=== PATIENT | female | born 1965 | race Caucasian/White ===

== ENCOUNTER 2016-04-05 21:48 | Emergency (ER) ==
[2016-04-05 22:28] VITALS: BP 138/80
[2016-04-06] MEDS ORDERED: NUBAIN IM ONE (00:26)
[2016-04-06] MEDS ORDERED: PHENERGAN IM ONE (00:26)
[2016-04-06] MEDS ORDERED: HYDROXYZINE IM ONE (00:26)
--- NOTE | 2016-04-06 00:31 | PROVIDER DOCUMENTATION ---
Addendum entered and electronically signed by Ronel Broussard CRNP 02:11: Progress - PLAN OF CARE/RESULTS Progress/Plan/Lab Results: Orders Category Date Time Status Hydroxyzine Med 04/06/16 00:26 Discontinued 50 mg IM NOW ONE Nalbuphine [Nubain] Med 04/06/16 00:26 Discontinued 1 mg IM NOW ONE Promethazine [Phenergan] Med 04/06/16 00:26 Discontinued 25 mg IM NOW ONE Vital Signs - 24 hr 04/05/16 22:25 Temperature 97.4 F L Pulse Rate 74 Respiratory 18 Rate Blood Pressure 138/80 O2 Sat by Pulse 100 Oximetry Original Note: HPI-Headache - General Source: patient - History of Present Illness-Headache Headache Location: reports: frontal Quality of Pain: reports: aching Severity: reports: mild Onset/Duration: reports: 1-3 hours ago Timing: reports: still present Headache History: reports: frequent headaches, history of migraines Any recent trauma/injury?: reports: none Headache severity at the maximum: mild Headache Exacerbated by:: reports: nothing Associated Symptoms: reports: headache, nausea, other (rash) Similar Symptoms Previously?: Yes Recently seen or treated by another doctor?: Yes <Eden Prince - Last Filed: 04/06/16 00:27> <Ronel Broussard - Last Filed: 04/06/16 00:46> - General Chief Complaint: Headache Stated Complaint: RASH, JOHNSON Time Seen by Provider: 04/05/16 23:47 Allergies/Adverse Reactions: Patient Allergies Allergy/AdvReac Type Severity Reaction Status Date / Time ketorolac tromethamine * Allergy Mild ITCHING Verified 04/02/16 01:22 [From Toradol] AND SWELLING Sulfa (Sulfonamide Allergy Mild RASH Verified 04/02/16 01:22 Antibiotics) trazodone AdvReac Severe HALLUCINATI Verified 04/02/16 01:22 ONS topiramate [From Topamax] AdvReac Intermediate "MADE ME Verified 04/02/16 01:22 GO BLIND" clindamycin AdvReac Unknown CANT TAKE Verified 04/02/16 01:22 WITH SEIZURE MEDS dicyclomine HCl * AdvReac Unknown CANT TAKE Verified 04/02/16 01:22 [From Bentyl] WITH SEIZURE MEDS Home Medications: Venlafaxine E.r. [Effexor Xr] 37.5 mg PO DAILY 02/18/15 Divalproex [Depakote] 500 mg PO TID 05/24/15 Clonazepam [Klonopin] 0.5 mg PO TID 10/26/15 Hydrochlorothiazide 12.5 mg PO QAM 11/01/15 Atorvastatin Calcium [Lipitor] 10 mg PO QHS 12/22/15 Sumatriptan [Imitrex] 50 mg PO PRN PRN 12/22/15 - History of Present Illness-Headache Nature of Presenting Problem: 51 year old F presents to the ED with a cc of a headache. PT states that she was her for a rash to left side of her face but en-route to the hospital developed a migraine. (Eden Prince) Review of Systems - Adult - REVIEW OF SYSTEMS - ADULT Constitutional: denies: chills, fever Eyes: reports: no symptoms reported Ears, Nose, Mouth & Throat: reports: no symptoms reported Cardiovascular: denies: chest pain, palpitations Respiratory: denies: cough, shortness of breath Gastrointestinal: reports: nausea. denies: abdominal pain, vomiting Genitourinary: denies: dysuria, hesitency Musculoskeletal: reports: no symptoms reported Integumentary: reports: itching, rash Neurological: reports: headache/migraines. denies: dizziness/vertigo Psychiatric: reports: no symptoms reported Endocrine: reports: no symptoms reported Hematologic/Lymphatic: reports: no symptoms reported Allergic/Immunologic: reports: no symptoms reported All Other Systems: Reviewed and Negative <Eden Prince - Last Filed: 04/06/16 00:27> Past History - Adult - PAST MEDICAL HISTORY-ADULT Review of Records: reports: Nursing Assessment Review, Medications Reviewed Major Childhood Illnesses: reports: denies history Cardiovascular: reports: HTN, hyperlipidemia Respiratory: reports: asthma Gastrointestinal: reports: IBS Neurological: reports: headaches/migraines, Seizures/Epilepsy Psychiatric: reports: anxiety Additional History: Frequent ER visits - PRIOR SURGERIES/PROCEDURES Surgical/Procedure History: reports: cholecystectomy, BTL, tonsillectomy, other (TUBAL) - IMMUNIZATION STATUS Childhood Immunizations: See Nurse Assessment Flu Vaccine: See Nurse Assessment - FAMILY HISTORY Family History: reviewed, not pertinent - SOCIAL HISTORY Smoking: non-smoker Substance Use: none/never Alcohol Use Frequency: never <Eden Prince - Last Filed: 04/06/16 00:27> Physical Exam- Neurological - Physical Exam-Neuro Initial Vital Signs Reviewed: Yes General Appearance: appears well, alert, no apparent distress Head Injury: no evidence of injury Respiratory: chest non-tender, lungs clear, normal breath sounds Cardiovascular: normal peripheral pulses, regular rate, rhythm, no edema Abdominal Exam: non tender, soft transmission operator Exam: normal hearing, normal speech, PERRL Neurologic: transmission operator II-XII nml as tested, no motor/sensory deficits Integumentary: normal color, normal turgor, warm/dry <Eden Prince - Last Filed: 04/06/16 00:27> Departure <Eden Prince - Last Filed: 04/06/16 00:27> - Departure Time of Disposition Order: 00:43 Certified Medical Emergency: Emergent <Ronel Broussard - Last Filed: 04/06/16 00:46> - Departure DIAGNOSIS: Urticaria Chronic headaches Qualifiers: Headache type: unspecified Intractability: not intractable Qualified Code(s): R51 - Headache Disposition: HOME 01 Condition: Stable Additional Instructions: ED Follow Up Instructions: You have been treated by a care provider in the Emergency Department. These instructions are being provided to you so you can have an understanding of how to care for yourself upon discharge. Upon discharge from the Emergency Department, you are responsible for making arrangements for follow-up care by a physician of your choice. Take all prescribed medications as directed. Return to the Emergency Department immediately for any new or worsening symptoms. You may call the Physician Referral phone number at [phone] to obtain a list of Physicians who are taking new patients. Prescriptions: Sumatriptan [Imitrex] 25 mg PO PRN PRN #9 tablet PRN Reason: Headache Hydroxyzine Pamoate [Vistaril] 25 mg PO BID PRN PRN #10 capsule PRN Reason: Itching Attestation - Scribe Verification/Attestation Scribe:: Eden Prince Acting as Scribe for:: Ronel Broussard Scribe documention review:: This chart was documented by a scribe and accurately reflects the service the provider performed and the decisions made by the provider. <Eden Prince - Last Filed: 04/06/16 00:27> - Physician/ Mid-level Attestation Patient care was provided by Mid-level provider (DEPUTY DIRECTOR OF NURSING/PA):: Yes Mid-level provider:: Ronel Broussard Mid-level documentation review:: The Mid-level provider documentation, treatment plan and medical decision making was reviewed by the physician who agrees with all treatment and medical decision making by the [facility]. <Roenl Broussard - Last Filed: 04/06/16 00:46> Physician Attestation - Physician Attestation I, the provider, attest to the following statement:: Ronel Broussard Physician documentation Attestation:: This documentation recorded by the scribe accurately reflects the service I personally performed and the decisions made by me. <Eden Prince - Last Filed: 04/06/16 00:27>
== END 2016-04-06 01:34 | disposition home or self-care (01) ==
LOC: ED 21:48
DX: L50.9 Urticaria, unspecified (principal); R51 Headache; R11.0 Nausea; R21 Rash and other nonspecific skin eruption; L29.9 Pruritus, unspecified; I10 Essential (primary) hypertension; E78.5 Hyperlipidemia, unspecified; R56.9 Unspecified convulsions; F41.9 Anxiety disorder, unspecified; Z79.899 Other long term (current) drug therapy
CPT/HCPCS: 96372; J2300; J2550; J3410

== ENCOUNTER 2016-04-06 18:44 | Emergency (ER) ==
[2016-04-06] MEDS ORDERED: NUBAIN IM ONE (19:29)
[2016-04-06] MEDS ORDERED: PHENERGAN IM ONE (19:29)
[2016-04-06] MEDS ORDERED: BENADRYL IM ONE (19:29)
--- NOTE | 2016-04-06 19:33 | PROVIDER DOCUMENTATION ---
HPI-Headache - General Chief Complaint: Seizure Stated Complaint: JOHNSON Time Seen by Provider: 04/06/16 19:01 Source: patient Allergies/Adverse Reactions: Patient Allergies Allergy/AdvReac Type Severity Reaction Status Date / Time ketorolac tromethamine * Allergy Mild ITCHING Verified 04/06/16 19:15 [From Toradol] AND SWELLING Sulfa (Sulfonamide Allergy Mild RASH Verified 04/06/16 19:15 Antibiotics) trazodone AdvReac Severe HALLUCINATI Verified 04/06/16 19:15 ONS topiramate [From Topamax] AdvReac Intermediate "MADE ME Verified 04/06/16 19:15 GO BLIND" clindamycin AdvReac Unknown CANT TAKE Verified 04/06/16 19:15 WITH SEIZURE MEDS dicyclomine HCl * AdvReac Unknown CANT TAKE Verified 04/06/16 19:15 [From Bentyl] WITH SEIZURE MEDS Home Medications: Venlafaxine E.r. [Effexor Xr] 37.5 mg PO DAILY 02/18/15 Divalproex [Depakote] 500 mg PO TID 05/24/15 Clonazepam [Klonopin] 0.5 mg PO TID 10/26/15 Hydrochlorothiazide 12.5 mg PO QAM 11/01/15 Atorvastatin Calcium [Lipitor] 10 mg PO QHS 12/22/15 Sumatriptan [Imitrex] 50 mg PO PRN PRN 12/22/15 - History of Present Illness-Headache Nature of Presenting Problem: 51 y/o f presents to the ed with her typical headache symptoms. pt has a ongoing hx of migraines. pt states she started having a headache last night and then again this morning. pt denies any fever/chills. Headache Location: reports: global Quality of Pain: reports: aching Severity: reports: moderate Onset/Duration: reports: last night Timing: reports: still present Headache History: reports: chronic headaches Any recent trauma/injury?: reports: none Headache severity at the maximum: moderate Similar Symptoms Previously?: Yes Recently seen or treated by another doctor?: No Review of Systems - Adult - REVIEW OF SYSTEMS - ADULT Constitutional: denies: chills, fever Gastrointestinal: denies: abdominal pain, nausea Neurological: reports: headache/migraines. denies: dizziness/vertigo Past History - Adult - PAST MEDICAL HISTORY-ADULT Review of Records: reports: Old Records Reviewed, Nursing Assessment Review, Medications Reviewed Major Childhood Illnesses: reports: denies history Cardiovascular: reports: HTN, hyperlipidemia Respiratory: reports: asthma Gastrointestinal: reports: IBS Neurological: reports: headaches/migraines, Seizures/Epilepsy Psychiatric: reports: anxiety Additional History: Frequent ER visits - PRIOR SURGERIES/PROCEDURES Surgical/Procedure History: reports: cholecystectomy, BTL, tonsillectomy, other (TUBAL) - IMMUNIZATION STATUS Childhood Immunizations: See Nurse Assessment Flu Vaccine: See Nurse Assessment - FAMILY HISTORY Family History: reviewed, not pertinent - SOCIAL HISTORY Smoking: non-smoker Substance Use: none/never Alcohol Use Frequency: never Physical Exam- Neurological - Physical Exam-Neuro Initial Vital Signs Reviewed: Yes General Appearance: alert, no apparent distress Eye Exam: bilateral eye: normal inspection, PERRL, EOMI HENMT: moist mucous membranes, normal ENT inspection, TMs normal Head Injury: no evidence of injury Neck: non-tender, full range of motion, supple Respiratory: chest non-tender, lungs clear, normal breath sounds Cardiovascular: normal peripheral pulses, regular rate, rhythm Abdominal Exam: normal bowel sounds, non tender, soft automatic mounter Exam: normal hearing, normal speech, PERRL Integumentary: normal color, normal turgor, warm/dry Psych/Mental Status: AL, normal mood/affect, normal thought content, normal thought process, oriented x 3 Progress - PLAN OF CARE/RESULTS Progress/Plan/Lab Results: plan of care: medication Orders Category Date Time Status Diphenhydramine [Benadryl] Med 04/06/16 19:29 Discontinued 25 mg IM NOW ONE Nalbuphine [Nubain] Med 04/06/16 19:29 Discontinued 1 mg IM NOW ONE Promethazine [Phenergan] Med 04/06/16 19:29 Discontinued 25 mg IM NOW ONE Vital Signs - 24 hr 04/06/16 18:53 Temperature 98.4 F Pulse Rate 102 H Respiratory 20 Rate Blood Pressure 104/43 O2 Sat by Pulse 95 Oximetry Departure - Departure Time of Disposition Order: 19:32 DIAGNOSIS: Migraine Qualifiers: Migraine type: unspecified Status migrainosus presence: without status migrainosus Intractability: not intractable Qualified Code(s): G43.909 - Migraine, unspecified, not intractable, without status migrainosus Disposition: HOME 01 Certified Medical Emergency: Emergent Condition: Stable Additional Instructions: ED Follow Up Instructions: You have been treated by a care provider in the Emergency Department. These instructions are being provided to you so you can have an understanding of how to care for yourself upon discharge. Upon discharge from the Emergency Department, you are responsible for making arrangements for follow-up care by a physician of your choice. Take all prescribed medications as directed. Return to the Emergency Department immediately for any new or worsening symptoms. You may call the Physician Referral phone number at [phone] to obtain a list of Physicians who are taking new patients. Attestation - Scribe Verification/Attestation Scribe:: Karyn Cohen Acting as Scribe for:: Lukasz Garrett Scribe documention review:: This chart was documented by a scribe and accurately reflects the service the provider performed and the decisions made by the provider.
[2016-04-06 19:45] VITALS: BP 101/48
== END 2016-04-06 21:03 | disposition home or self-care (01) ==
LOC: ED 18:44
DX: G43.909 Migraine, unspecified, not intractable, without status migrainosus (principal); R51 Headache; I10 Essential (primary) hypertension; E78.5 Hyperlipidemia, unspecified; R56.9 Unspecified convulsions; F41.9 Anxiety disorder, unspecified; Z79.899 Other long term (current) drug therapy
CPT/HCPCS: 96372; J1200; J2300; J2550

== ENCOUNTER 2016-04-11 00:07 | Emergency (ER) ==
--- NOTE | 2016-04-11 01:04 | PROVIDER DOCUMENTATION ---
HPI-General Adult - General Source: patient - History of Present Illness -Gen Adult Nature of Presenting Problems: 51 y/o f presents to the ed with right ankle pain X 2 days. pt states she fell through a floor yesterday and her right ankle is hurting bc she braced herself with the right foot. pt denies any other injuries. Location of Pain/Injury: reports: lower extremity (right medial ankle) Pain Radiation: reports: no radiation Quality of Pain: reports: aching Severity: reports: mild Onset/Duration: reports: 24 hours ago Timing: reports: still present Modifying Factors: improves with: movement Similar Symptoms Previously?: No Recently seen or treated by another doctor?: No <Karyn Cohen - Last Filed: 04/11/16 01:19> - General Source: patient <Brisa CallahanRadha - Last Filed: 04/11/16 01:35> - General Chief Complaint: Extremity Pain Stated Complaint: RT FT PAIN Time Seen by Provider: 04/11/16 00:43 Allergies/Adverse Reactions: Patient Allergies Allergy/AdvReac Type Severity Reaction Status Date / Time ketorolac tromethamine * Allergy Mild ITCHING Verified 04/11/16 00:14 [From Toradol] AND SWELLING Sulfa (Sulfonamide Allergy Mild RASH Verified 04/11/16 00:14 Antibiotics) trazodone AdvReac Severe HALLUCINATI Verified 04/11/16 00:14 ONS topiramate [From Topamax] AdvReac Intermediate "MADE ME Verified 04/11/16 00:14 GO BLIND" clindamycin AdvReac Unknown CANT TAKE Verified 04/11/16 00:14 WITH SEIZURE MEDS dicyclomine HCl * AdvReac Unknown CANT TAKE Verified 04/11/16 00:14 [From Bentyl] WITH SEIZURE MEDS Home Medications: Venlafaxine E.r. [Effexor Xr] 37.5 mg PO DAILY 02/18/15 Divalproex [Depakote] 500 mg PO TID 05/24/15 Clonazepam [Klonopin] 0.5 mg PO TID 10/26/15 Hydrochlorothiazide 12.5 mg PO QAM 11/01/15 Atorvastatin Calcium [Lipitor] 10 mg PO QHS 12/22/15 Sumatriptan [Imitrex] 50 mg PO PRN PRN 12/22/15 Review of Systems - Adult - REVIEW OF SYSTEMS - ADULT Constitutional: denies: chills, fever Cardiovascular: denies: chest pain, palpitations Neurological: denies: dizziness/vertigo, headache/migraines <Karyn Cohen - Last Filed: 04/11/16 01:19> Past History - Adult - PAST MEDICAL HISTORY-ADULT Review of Records: reports: Old Records Reviewed, Nursing Assessment Review, Medications Reviewed Major Childhood Illnesses: reports: denies history Cardiovascular: reports: HTN, hyperlipidemia Respiratory: reports: asthma Gastrointestinal: reports: IBS Neurological: reports: headaches/migraines, Seizures/Epilepsy Psychiatric: reports: anxiety Additional History: Frequent ER visits - PRIOR SURGERIES/PROCEDURES Surgical/Procedure History: reports: cholecystectomy, BTL, tonsillectomy, other (TUBAL) - IMMUNIZATION STATUS Childhood Immunizations: See Nurse Assessment Flu Vaccine: See Nurse Assessment - FAMILY HISTORY Family History: reviewed, not pertinent - SOCIAL HISTORY Smoking: non-smoker <Karyn Cohen - Last Filed: 04/11/16 01:19> Physical Exam-General - PHYSICAL EXAM-ADULT Initial Vital Signs Reviewed: Yes - CONSTITUTIONAL General Appearance: alert, no apparent distress - EYES Eyes: PERRL/EOMI, pink conjunctivae, fundi clear, no AV nicking - HEAD, EARS, NOSE, MOUTH & THROAT HENMT: normocephalic/atraumatic, moist mucous membranes, normal ENT inspection - NECK Neck: non-tender, full range of motion, supple - RESPIRATORY Respiratory: chest non-tender, lungs clear, normal breath sounds - CARDIOVASCULAR Cardiovascular: normal peripheral pulses, regular rate, rhythm - GASTROINTESTINAL (ABDOMEN) Abdominal Exam: normal bowel sounds, non tender, soft - MUSCULOSKELETAL Back Exam: normal inspection Extremity: tenderness (right ankle) - SKIN Integumentary: normal color, normal turgor, warm/dry - PSYCHIATRIC Psych/Mental Status: normal mood/affect, normal thought content, normal thought process, oriented x 3 <Karyn Cohen - Last Filed: 04/11/16 01:19> Progress - XRAY 1 XRAY: Right XRAY Study: Ankle Impression: Normal XRAY Interpretation: normal <Karyn Cohen - Last Filed: 04/11/16 01:19> - PLAN OF CARE/RESULTS Progress/Plan/Lab Results: Orders Category Date Time Status ANKLE COMPLETE RIGHT [RAD] Stat Exams 04/11/16 00:46 Taken Acetaminophen [Tylenol] Med 04/11/16 01:27 Discontinued 650 mg PO NOW ONE Vital Signs Temp Pulse Resp BP Pulse Ox 04/11/16 00:09 98.1 F 90 17 123/63 100 ketorolac tromethamine * [From Toradol] Allergy (Mild, Verified 04/11/16 00:14) ITCHING AND SWELLING Sulfa (Sulfonamide Antibiotics) Allergy (Mild, Verified 04/11/16 00:14) RASH trazodone Adverse Reaction (Severe, Verified 04/11/16 00:14) HALLUCINATIONS topiramate [From Topamax] Adverse Reaction (Intermediate, Verified 04/11/16 00: 14) "MADE ME GO BLIND" clindamycin Adverse Reaction (Unknown, Verified 04/11/16 00:14) CANT TAKE WITH SEIZURE MEDS dicyclomine HCl * [From Bentyl] Adverse Reaction (Unknown, Verified 04/11/16 00: 14) CANT TAKE WITH SEIZURE MEDS Venlafaxine E.r. [Effexor Xr] 37.5 mg PO DAILY 02/18/15 Divalproex [Depakote] 500 mg PO TID 05/24/15 Clonazepam [Klonopin] 0.5 mg PO TID 10/26/15 Hydrochlorothiazide 12.5 mg PO QAM 11/01/15 Atorvastatin Calcium [Lipitor] 10 mg PO QHS 12/22/15 Sumatriptan [Imitrex] 50 mg PO PRN PRN 12/22/15 Promethazine [Phenergan] 25 mg PO Q6H PRN PRN #15 tablet 02/18/16 Benzonatate [Tessalon] 100 mg PO TID #30 capsule 03/10/16 Amoxicillin 500 mg PO BID #14 tablet 03/24/16 Hydroxyzine Pamoate [Vistaril] 25 mg PO BID PRN PRN #10 capsule 04/06/16 Sumatriptan [Imitrex] 25 mg PO PRN PRN #9 tablet 04/06/16 Acetaminophen/Diphenhydramine [Percogesic Extra Str Caplet] 1 each PO 4XDAY PRN PRN #30 tablet 04/11/16 Discussed results and f/u with pt. <Brisa Callahan - Last Filed: 04/11/16 01:35> Departure <Karyn Cohen - Last Filed: 04/11/16 01:19> - Departure Time of Disposition Order: 01:21 Certified Medical Emergency: Emergent <Brisa Callahan - Last Filed: 04/11/16 01:35> - Departure DIAGNOSIS: Ankle pain, right Qualifiers: Chronicity: acute Qualified Code(s): M25.571 - Pain in right ankle and joints of right foot Disposition: HOME 01 Condition: Stable Additional Instructions: RICE as needed. Follow up with specialist if symptoms get worse. ED Follow Up Instructions: You have been treated by a care provider in the Emergency Department. These instructions are being provided to you so you can have an understanding of how to care for yourself upon discharge. Upon discharge from the Emergency Department, you are responsible for making arrangements for follow-up care by a physician of your choice. Take all prescribed medications as directed. Return to the Emergency Department immediately for any new or worsening symptoms. You may call the Physician Referral phone number at [phone] to obtain a list of Physicians who are taking new patients. Prescriptions: Acetaminophen/Diphenhydramine [Percogesic Extra Str Caplet] 1 each PO 4XDAY PRN PRN #30 tablet PRN Reason: Pain Referrals: None,PCP [Primary Care Provider] - Berhane Pepe MD [STAFF PHYSICIAN] - Instructions: Ankle Pain Attestation - Physician/ Mid-level Attestation Patient care was provided by Mid-level provider (A/C TECHNICIAN/PA):: Yes Mid-level provider:: Brisa Callahan Mid-level documentation review:: The Mid-level provider documentation, treatment plan and medical decision making was reviewed by the physician who agrees with all treatment and medical decision making by the [facility]. <Brisa Callahan - Last Filed: 04/11/16 01:35> Physician Attestation
[2016-04-11] MEDS ORDERED: TYLENOL PO ONE (01:27)
[2016-04-11 01:51] VITALS: BP 120/68
--- NOTE | 2016-04-11 07:15 | Diag Imaging Result Document ---
PROCEDURE NAME: ANKLE COMPLETE RIGHT - 04/11/2016 RIGHT ANKLE, THREE VIEWS: FINDINGS: No fracture. No dislocation. There are small calcaneal bone spurs. IMPRESSION: No acute bony injury.
== END 2016-04-11 01:51 | disposition home or self-care (01) ==
LOC: ED 00:07
DX: M25.571 Pain in right ankle and joints of right foot (principal); I10 Essential (primary) hypertension; E78.5 Hyperlipidemia, unspecified; R56.9 Unspecified convulsions; F41.9 Anxiety disorder, unspecified; Z79.899 Other long term (current) drug therapy; W19.XXXA Unspecified fall, initial encounter
CPT/HCPCS: 99283

== ENCOUNTER 2016-04-13 21:51 | Emergency (ER) ==
[2016-04-13 21:56] VITALS: BP 129/66
[2016-04-13] MEDS ORDERED: PHENERGAN IM ONE (22:16)
[2016-04-13] MEDS ORDERED: TYLENOL PO ONE (22:16)
--- NOTE | 2016-04-13 22:24 | PROVIDER DOCUMENTATION ---
HPI-Headache - General Chief Complaint: Headache Stated Complaint: JOHNSON Time Seen by Provider: 04/13/16 22:16 Source: patient Allergies/Adverse Reactions: Patient Allergies Allergy/AdvReac Type Severity Reaction Status Date / Time ketorolac tromethamine * Allergy Mild ITCHING Verified 04/13/16 21:58 [From Toradol] AND SWELLING Sulfa (Sulfonamide Allergy Mild RASH Verified 04/13/16 21:58 Antibiotics) trazodone AdvReac Severe HALLUCINATI Verified 04/13/16 21:58 ONS topiramate [From Topamax] AdvReac Intermediate "MADE ME Verified 04/13/16 21:58 GO BLIND" clindamycin AdvReac Unknown CANT TAKE Verified 04/13/16 21:58 WITH SEIZURE MEDS dicyclomine HCl * AdvReac Unknown CANT TAKE Verified 04/13/16 21:58 [From Bentyl] WITH SEIZURE MEDS Home Medications: Venlafaxine E.r. [Effexor Xr] 37.5 mg PO DAILY 02/18/15 Divalproex [Depakote] 500 mg PO TID 05/24/15 Clonazepam [Klonopin] 0.5 mg PO TID 10/26/15 Hydrochlorothiazide 12.5 mg PO QAM 11/01/15 Atorvastatin Calcium [Lipitor] 10 mg PO QHS 12/22/15 - History of Present Illness-Headache Nature of Presenting Problem: 51 y/o WF c/o JOHNSON x 4 days. Pt states she has taken phenergan, benadryl, and imitrex at home, without relief. States she has had vomiting with the JOHNSON. Pt states that she can't keep her pills down long enough for medication to work. Denies any other sxs. States some intermittent muscle aches in her back; not currently happening. Review of Systems - Adult - REVIEW OF SYSTEMS - ADULT Constitutional: reports: no symptoms reported. denies: chills, fever Eyes: reports: no symptoms reported. denies: blurred vision, double vision Ears, Nose, Mouth & Throat: reports: no symptoms reported. denies: ear pain, nose pain Cardiovascular: reports: no symptoms reported. denies: chest pain, palpitations Respiratory: reports: no symptoms reported. denies: dyspnea on exertion, shortness of breath Gastrointestinal: reports: see HPI, nausea, vomiting. denies: abdominal pain Genitourinary: reports: no symptoms reported. denies: dysuria, frequency Musculoskeletal: reports: no symptoms reported. denies: joint pain, joint swelling Integumentary: reports: no symptoms reported. denies: nail changes, rash Neurological: reports: see HPI, headache/migraines (frontal, superior scalp). denies: numbness, paresthesia Psychiatric: reports: no symptoms reported Endocrine: reports: no symptoms reported Hematologic/Lymphatic: reports: no symptoms reported Allergic/Immunologic: reports: no symptoms reported All Other Systems: Reviewed and Negative Past History - Adult - PAST MEDICAL HISTORY-ADULT Review of Records: reports: Nursing Assessment Review, Medications Reviewed Major Childhood Illnesses: reports: denies history Cardiovascular: reports: HTN, hyperlipidemia Respiratory: reports: asthma Gastrointestinal: reports: IBS Neurological: reports: headaches/migraines, Seizures/Epilepsy Psychiatric: reports: anxiety Additional History: Frequent ER visits - PRIOR SURGERIES/PROCEDURES Surgical/Procedure History: reports: cholecystectomy, BTL, tonsillectomy, other (TUBAL) - IMMUNIZATION STATUS Childhood Immunizations: See Nurse Assessment Flu Vaccine: See Nurse Assessment - FAMILY HISTORY Family History: reviewed, not pertinent Physical Exam- Neurological - Physical Exam-Neuro Initial Vital Signs Reviewed: Yes General Appearance: alert, mild distress Eye Exam: bilateral eye: normal inspection, PERRL, EOMI HENMT: normocephalic/atraumatic, moist mucous membranes Head Injury: no evidence of injury Neck: full range of motion, supple, normal inspection. negative: Brudzinski's sign Respiratory: lungs clear, normal breath sounds. negative: crackles, rales, rhonchi, stridor, wheezing Cardiovascular: regular rate, rhythm. negative: bradycardia, tachycardia Abdominal Exam: normal bowel sounds, non tender, soft. negative: distended, guarding, rigid, rebound Extremity: normal gait separations scientist Exam: normal hearing, normal speech, PERRL. negative: abnormal eye position , abnormal pupil position, abnormal speech, facial asymmetry, facial droop, facial paresthesias, facial weakness, gaze palsy, hearing deficit (R), hearing deficit (L), tongue deviation to R, tongue deviation to L Coordination/Gait: normal gait Motor/Sensory: no motor deficit, no sensory deficit. negative: sensory deficit , weak motor strength RUE, weak motor strength LUE, weak motor strength RLE, weak motor strength LLE Neurologic: separations scientist II-XII nml as tested. negative: aphasia Integumentary: normal color, normal turgor, warm/dry Psych/Mental Status: normal mood/affect, normal thought content, normal thought process, oriented x 3 Progress - PLAN OF CARE/RESULTS Progress/Plan/Lab Results: Orders Category Date Time Status Acetaminophen [Tylenol] Med 04/13/16 22:16 Discontinued 650 mg PO NOW ONE Promethazine [Phenergan] Med 04/13/16 22:16 Discontinued 25 mg IM NOW ONE Vital Signs Temp Pulse Resp BP Pulse Ox 04/13/16 21:53 98.5 F 114 H 14 129/66 100 ketorolac tromethamine * [From Toradol] Allergy (Mild, Verified 04/13/16 21:58) ITCHING AND SWELLING Sulfa (Sulfonamide Antibiotics) Allergy (Mild, Verified 04/13/16 21:58) RASH trazodone Adverse Reaction (Severe, Verified 04/13/16 21:58) HALLUCINATIONS topiramate [From Topamax] Adverse Reaction (Intermediate, Verified 04/13/16 21: 58) "MADE ME GO BLIND" clindamycin Adverse Reaction (Unknown, Verified 04/13/16 21:58) CANT TAKE WITH SEIZURE MEDS dicyclomine HCl * [From Bentyl] Adverse Reaction (Unknown, Verified 04/13/16 21: 58) CANT TAKE WITH SEIZURE MEDS Venlafaxine E.r. [Effexor Xr] 37.5 mg PO DAILY 02/18/15 Divalproex [Depakote] 500 mg PO TID 05/24/15 Clonazepam [Klonopin] 0.5 mg PO TID 10/26/15 Hydrochlorothiazide 12.5 mg PO QAM 11/01/15 Atorvastatin Calcium [Lipitor] 10 mg PO QHS 12/22/15 Promethazine [Phenergan] 25 mg PO Q6H PRN PRN #15 tablet 02/18/16 Hydroxyzine Pamoate [Vistaril] 25 mg PO BID PRN PRN #10 capsule 04/06/16 Sumatriptan [Imitrex] 25 mg PO PRN PRN #9 tablet 04/06/16 Acetaminophen/Diphenhydramine [Percogesic Extra Str Caplet] 1 each PO 4XDAY PRN PRN #30 tablet 04/11/16 Cyclobenzaprine [Flexeril] 10 mg PO TID PRN #20 tablet 04/13/16 Promethazine [Phenergan] 25 mg GA Q6H PRN PRN #14 supp 04/13/16 Discussed medication use and f/u with pt. Departure - Departure Time of Disposition Order: 22:28 DIAGNOSIS: Headache Qualifiers: Headache type: unspecified Headache chronicity pattern: acute headache Intractability: not intractable Qualified Code(s): R51 - Headache Disposition: HOME 01 Certified Medical Emergency: Emergent Condition: Stable Additional Instructions: Take medications as directed. Follow up with PCP for further management. ED Follow Up Instructions: You have been treated by a care provider in the Emergency Department. These instructions are being provided to you so you can have an understanding of how to care for yourself upon discharge. Upon discharge from the Emergency Department, you are responsible for making arrangements for follow-up care by a physician of your choice. Take all prescribed medications as directed. Return to the Emergency Department immediately for any new or worsening symptoms. You may call the Physician Referral phone number at [phone] to obtain a list of Physicians who are taking new patients. Prescriptions: Cyclobenzaprine [Flexeril] 10 mg PO TID PRN #20 tablet PRN Reason: Cramps Promethazine [Phenergan] 25 mg GA Q6H PRN PRN #14 supp PRN Reason: Nausea Referrals: None,PCP [Primary Care Provider] - Instructions: Migraine Headache, [id number] Attestation - Physician/ Mid-level Attestation Patient care was provided by Mid-level provider (SWEEPING COMPOUND BLENDER/PA):: Yes Mid-level provider:: Brisa Callahan Mid-level documentation review:: The Mid-level provider documentation, treatment plan and medical decision making was reviewed by the physician who agrees with all treatment and medical decision making by the P.
== END 2016-04-13 22:43 | disposition home or self-care (01) ==
LOC: ED 21:51
DX: R51 Headache (principal); R11.2 Nausea with vomiting, unspecified; I10 Essential (primary) hypertension; E78.5 Hyperlipidemia, unspecified; R56.9 Unspecified convulsions; F41.9 Anxiety disorder, unspecified; Z79.899 Other long term (current) drug therapy
CPT/HCPCS: 96372; J2550

== ENCOUNTER 2016-05-29 16:02 | Emergency (ER) ==
[2016-05-29] MEDS ORDERED: ZOFRAN IM ONE (17:13)
[2016-05-29] MEDS ORDERED: TYLENOL PO ONE (17:13)
[2016-05-29] MEDS ORDERED: BENADRYL IM ONE (17:13)
--- NOTE | 2016-05-29 17:15 | PROVIDER DOCUMENTATION ---
HPI-Headache - General Chief Complaint: Headache Stated Complaint: MIGRAINE HEADACHE Time Seen by Provider: 05/29/16 17:01 Source: patient Allergies/Adverse Reactions: Patient Allergies Allergy/AdvReac Type Severity Reaction Status Date / Time ketorolac tromethamine * Allergy Mild ITCHING Verified 05/19/16 18:04 [From Toradol] AND SWELLING Sulfa (Sulfonamide Allergy Mild RASH Verified 05/19/16 18:04 Antibiotics) trazodone AdvReac Severe HALLUCINATI Verified 05/19/16 18:04 ONS topiramate [From Topamax] AdvReac Intermediate "MADE ME Verified 05/19/16 18:04 GO BLIND" clindamycin AdvReac Unknown CANT TAKE Verified 05/19/16 18:04 WITH SEIZURE MEDS dicyclomine HCl * AdvReac Unknown CANT TAKE Verified 05/19/16 18:04 [From Bentyl] WITH SEIZURE MEDS Home Medications: Home Medication List Medication Instructions Recorded Confirmed Last Taken Type Venlafaxine E.r. [Effexor Xr] 37.5 mg PO DAILY 02/18/15 05/19/16 05/15/16 History Divalproex [Depakote] 500 mg PO TID 05/24/15 05/19/16 05/15/16 12:00 History Clonazepam [Klonopin] 0.5 mg PO TID 10/26/15 05/19/16 05/14/16 History Hydrochlorothiazide 12.5 mg PO QAM 11/01/15 05/19/16 05/15/16 History Atorvastatin Calcium [Lipitor] 10 mg PO QHS 12/22/15 05/19/16 05/14/16 History Promethazine [Phenergan] 25 mg PO Q6H PRN PRN #15 tablet 02/18/16 05/19/1605/14 Rx Sumatriptan [Imitrex] 25 mg PO PRN PRN #9 tablet 04/06/16 05/19/16 05/14/16 Rx Cyclobenzaprine [Flexeril] 10 mg PO TID PRN #20 tablet 04/13/16 05/19/16 08:30 Rx Gabapentin 300 mg PO DAILY 04/21/16 05/19/16 05/15/16 12:00 History Ibuprofen [Motrin] 800 mg PO Q8H PRN PRN #20 tablet 05/08/16 05/19/16 05/14/16 Rx Omeprazole [Prilosec] 20 mg PO DAILY@0700 #20 capsule 05/08/16 05/19/16 Unknown Rx Guaifen/Dextromethorphan/PE 1 each PO TID #30 tablet 05/15/16 05/19/16 Unknown Rx [Deconex Dmx Tablet] Levocetirizine Dihydrochloride 5 mg PO DAILY 05/15/16 05/19/16 05/15/16 07:00 History Metformin HCl 500 mg PO DAILY 05/15/16 05/19/16 05/15/16 07:00 History Azithromycin [Zithromax Z-Joseph] 250 mg PO DIRECTED #1 pkg 05/19/16 Unknown Rx Prednisone [Deltasone] 20 mg PO DIRECTED #12 tablet 05/19/16 Unknown Rx - History of Present Illness-Headache Nature of Presenting Problem: 51 y/o WF well known to the ER, presenting for headache. Seen by psychiatrist this morning for these. States she tried Imitrex without relief. This is typical of her headaches. Reports photophobia and nausea. Headache Location: reports: frontal Quality of Pain: reports: aching Severity: reports: mild Onset/Duration: reports: 1-3 hours ago Timing: reports: still present, intermittent Review of Systems - Adult - REVIEW OF SYSTEMS - ADULT Constitutional: reports: no symptoms reported. denies: chills, fever, fatique Eyes: reports: no symptoms reported. denies: decreased vision, blurred vision, double vision, eye pain Ears, Nose, Mouth & Throat: reports: no symptoms reported. denies: ear pain, nose pain, throat pain Cardiovascular: reports: no symptoms reported. denies: chest pain, palpitations Respiratory: reports: no symptoms reported. denies: cough, shortness of breath Gastrointestinal: reports: see HPI, nausea. denies: abdominal pain, diarrhea, vomiting Genitourinary: reports: no symptoms reported Musculoskeletal: reports: no symptoms reported. denies: bone pain, back pain, muscle aches Integumentary: reports: no symptoms reported. denies: rash Neurological: reports: see HPI, headache/migraines. denies: ataxia, dizziness/ vertigo Psychiatric: reports: no symptoms reported Endocrine: reports: no symptoms reported Hematologic/Lymphatic: reports: no symptoms reported Allergic/Immunologic: reports: no symptoms reported All Other Systems: Reviewed and Negative Past History - Adult - PAST MEDICAL HISTORY-ADULT Review of Records: reports: Old Records Reviewed, Nursing Assessment Review, Medications Reviewed, Social history reviewed & non-contributory. Major Childhood Illnesses: reports: denies history Cardiovascular: reports: HTN, hyperlipidemia Respiratory: reports: asthma Gastrointestinal: reports: IBS Obstetrical/Gynecological: reports: denies history Genitourinary: reports: denies history Musculoskeletal: reports: denies history Neurological: reports: headaches/migraines, Seizures/Epilepsy Psychiatric: reports: anxiety Endocrine/Immune: reports: Diabetes Other Conditions: reports: denies history Additional History: Frequent ER visits - PRIOR SURGERIES/PROCEDURES Surgical/Procedure History: reports: cholecystectomy, BTL, tonsillectomy, other (TUBAL) - IMMUNIZATION STATUS Childhood Immunizations: See Nurse Assessment Flu Vaccine: See Nurse Assessment - FAMILY HISTORY Family History: reviewed, not pertinent Physical Exam- Neurological - Physical Exam-Neuro Initial Vital Signs Reviewed: Yes General Appearance: appears well, alert, no apparent distress Eye Exam: bilateral eye: normal inspection, PERRL, EOMI HENMT: normocephalic/atraumatic, moist mucous membranes Head Injury: no evidence of injury Respiratory: chest non-tender, lungs clear, normal breath sounds, no pleuratic chest pain, no respiratory distress, no accessory muscle use. negative: respiratory distress, decreased breath sounds, accessory muscle use, crackles, rales, rhonchi, wheezing Cardiovascular: normal peripheral pulses, regular rate, rhythm Peripheral Pulses: radial (R): 2+, radial (L): 2+ Extremity: normal range of motion, non-tender, normal gait, normal inspection donor recruiter Exam: normal hearing, normal speech, PERRL Coordination/Gait: normal gait Motor/Sensory: no motor deficit, no sensory deficit, no pronator drift Neurologic: grossly normal, no motor/sensory deficits Integumentary: normal color, normal turgor, warm/dry Psych/Mental Status: normal mood/affect, normal thought content, normal thought process, oriented x 3 - Glascow Coma Scale Best Eye Response: (4) open spontaneously Best Verbal Response: (5) oriented Best Motor Response: (6) obeys commands Progress - PLAN OF CARE/RESULTS Progress/Plan/Lab Results: Vital Signs Temp Pulse Resp BP Pulse Ox 05/29/16 16:33 97.5 F L 58 L 20 145/73 100 ketorolac tromethamine * [From Toradol] Allergy (Mild, Verified 05/19/16 18:04) ITCHING AND SWELLING Sulfa (Sulfonamide Antibiotics) Allergy (Mild, Verified 05/19/16 18:04) RASH trazodone Adverse Reaction (Severe, Verified 05/19/16 18:04) HALLUCINATIONS topiramate [From Topamax] Adverse Reaction (Intermediate, Verified 05/19/16 18: 04) "MADE ME GO BLIND" clindamycin Adverse Reaction (Unknown, Verified 05/19/16 18:04) CANT TAKE WITH SEIZURE MEDS dicyclomine HCl * [From Bentyl] Adverse Reaction (Unknown, Verified 05/19/16 18: 04) CANT TAKE WITH SEIZURE MEDS Venlafaxine E.r. [Effexor Xr] 37.5 mg PO DAILY 02/18/15 Divalproex [Depakote] 500 mg PO TID 05/24/15 Clonazepam [Klonopin] 0.5 mg PO TID 10/26/15 Hydrochlorothiazide 12.5 mg PO QAM 11/01/15 Atorvastatin Calcium [Lipitor] 10 mg PO QHS 12/22/15 Promethazine [Phenergan] 25 mg PO Q6H PRN PRN #15 tablet 02/18/16 Sumatriptan [Imitrex] 25 mg PO PRN PRN #9 tablet 04/06/16 Cyclobenzaprine [Flexeril] 10 mg PO TID PRN #20 tablet 04/13/16 Gabapentin 300 mg PO DAILY 04/21/16 Ibuprofen [Motrin] 800 mg PO Q8H PRN PRN #20 tablet 05/08/16 Omeprazole [Prilosec] 20 mg PO DAILY@0700 #20 capsule 05/08/16 Guaifen/Dextromethorphan/PE [Deconex Dmx Tablet] 1 each PO TID #30 tablet Levocetirizine Dihydrochloride 5 mg PO DAILY 05/15/16 Metformin HCl 500 mg PO DAILY 05/15/16 Azithromycin [Zithromax Z-Joseph] 250 mg PO DIRECTED #1 pkg 05/19/16 Prednisone [Deltasone] 20 mg PO DIRECTED #12 tablet 05/19/16 Orders Category Date Time Status Acetaminophen [Tylenol] Med 05/29/16 17:13 Discontinued 1,000 mg PO NOW ONE Diphenhydramine [Benadryl] Med 05/29/16 17:13 Discontinued 50 mg IM NOW ONE Ondansetron [Zofran] Med 05/29/16 17:13 Discontinued 8 mg IM NOW ONE Departure - Departure Time of Disposition Order: 17:14 DIAGNOSIS: Headache Qualifiers: Headache type: tension-type Headache chronicity pattern: chronic headache Intractability: intractable Qualified Code(s): G44.221 - Chronic tension-type headache, intractable Disposition: HOME 01 Certified Medical Emergency: Emergent Condition: Stable Additional Instructions: ED Follow Up Instructions: You have been treated by a care provider in the Emergency Department. These instructions are being provided to you so you can have an understanding of how to care for yourself upon discharge. Upon discharge from the Emergency Department, you are responsible for making arrangements for follow-up care by a physician of your choice. Take all prescribed medications as directed. Return to the Emergency Department immediately for any new or worsening symptoms. You may call the Physician Referral phone number at [phone] to obtain a list of Physicians who are taking new patients. Referrals: None,PCP [Primary Care Provider] - Instructions: Migraine Headache, [id number] Attestation - Physician/ MIKEL Attestation Patient care was provided by Advanced Practice Provider:: Yes Advanced Practice Provider:: Autumn Mercado Advanced Practice Provider documentation review:: The Mid-level provider documentation, treatment plan and medical decision making was reviewed by the physician who agrees with all treatment and medical decision making by the MLP.
[2016-05-29 18:32] VITALS: BP 140/80
== END 2016-05-29 18:32 | disposition home or self-care (01) ==
LOC: ED 16:02
DX: G44.221 Chronic tension-type headache, intractable (principal); H53.149 Visual discomfort, unspecified; R11.0 Nausea; I10 Essential (primary) hypertension; E78.5 Hyperlipidemia, unspecified; R56.9 Unspecified convulsions; E11.9 Type 2 diabetes mellitus without complications; F41.9 Anxiety disorder, unspecified; Z79.899 Other long term (current) drug therapy
CPT/HCPCS: J1200; J2405

== ENCOUNTER 2016-06-01 19:10 | Emergency (ER) ==
[2016-06-01 19:17] VITALS: BP 129/67
--- NOTE | 2016-06-01 19:35 | PROVIDER DOCUMENTATION ---
HPI-Musculoskeletal Pain/Inj - GENERAL Chief Complaint: Extremity Pain Stated Complaint: LT LEG PAIN Time Seen by Provider: 06/01/16 19:24 Source: patient - HX OF PRESENT ILLNESS-MUSKULOSKELTAL Nature of Presenting Problem: Pt is a 51 y/o F c chief complaint of L posterior knee pain x 1 week. Pt states she contacted her PCP and was advised to report to the ER for possible DVT. Pt does not have a h/o DVT or coag disorder. Pt denies any recent long travel or being sedentary. She denies CP, SOB. On arrival, pt is in minimal distress. Review of Systems - Adult - REVIEW OF SYSTEMS - ADULT Constitutional: reports: no symptoms reported. denies: chills, fatique Eyes: reports: no symptoms reported. denies: blurred vision, double vision Ears, Nose, Mouth & Throat: reports: no symptoms reported. denies: ear pain, nose pain, throat pain Cardiovascular: reports: no symptoms reported. denies: chest pain, orthopnea Respiratory: reports: no symptoms reported. denies: cough, shortness of breath Gastrointestinal: reports: no symptoms reported. denies: abdominal pain, nausea Genitourinary: reports: no symptoms reported. denies: dysuria, hematuria Musculoskeletal: reports: joint pain, joint swelling, muscle aches Integumentary: reports: no symptoms reported. denies: itching, rash Neurological: reports: no symptoms reported. denies: numbness, paresthesia Psychiatric: reports: no symptoms reported. denies: anxiety, emotional problems Endocrine: reports: no symptoms reported. denies: cold intolerance, heat intolerance Hematologic/Lymphatic: reports: no symptoms reported. denies: blood clots, low blood count Allergic/Immunologic: reports: no symptoms reported. denies: allergic reactions , eczema All Other Systems: Reviewed and Negative Past History - Adult - PAST MEDICAL HISTORY-ADULT Review of Records: reports: Old Records Reviewed, Nursing Assessment Review, Medications Reviewed, Social history reviewed & non-contributory. Major Childhood Illnesses: reports: denies history Cardiovascular: reports: HTN, hyperlipidemia Respiratory: reports: asthma Gastrointestinal: reports: IBS Obstetrical/Gynecological: reports: denies history Genitourinary: reports: denies history Musculoskeletal: reports: chronic pain Neurological: reports: headaches/migraines, Seizures/Epilepsy Psychiatric: reports: anxiety Endocrine/Immune: reports: Diabetes Other Conditions: reports: denies history Additional History: Frequent ER visits - PRIOR SURGERIES/PROCEDURES Surgical/Procedure History: reports: cholecystectomy, BTL, tonsillectomy, other (TUBAL) - IMMUNIZATION STATUS Childhood Immunizations: See Nurse Assessment Flu Vaccine: See Nurse Assessment - FAMILY HISTORY Family History: reviewed, not pertinent - SOCIAL HISTORY Smoking: denies Substance Use: none/never Alcohol Use Frequency: never Living Situation: family Physical Exam-Injury Related - Physical Exam-Injury Related Initial Vital Signs Reviewed: Yes General Appearance: appears well, alert, no apparent distress Eyes: PERRL/EOMI, pink conjunctivae Head, Ears, Nose, Mouth & Throat: normocephalic/atraumatic, moist mucous membranes, normal ENT inspection Neck: non-tender, full range of motion, supple Respiratory: chest non-tender, lungs clear, normal breath sounds Cardiovascular: normal peripheral pulses, regular rate, rhythm Abdominal Exam: normal bowel sounds, non tender, soft Lymphatic: no adenopathy Back Exam: normal inspection Integumentary: normal color, warm/dry Neurologic: grossly normal, no motor/sensory deficits Psych/Mental Status: normal mood/affect, normal thought content, normal thought process, oriented x 3 - Glascow Coma Score Best Eye Response ([place]): (4) open spontaneously Best Verbal Response (Kati): (5) oriented Best Motor Response (Kati): (6) obeys commands Progress - PLAN OF CARE/RESULTS Progress/Plan/Lab Results: Orders Category Date Time Status Ddimer [D-DIMER] [CHEM] Stat Lab 06/01/16 19:40 Completed Laboratory Tests 06/01/16 19:40 D-Dimer 0.24 Vital Signs - 24 hr 06/01/16 19:13 Temperature 97.5 F L Pulse Rate 65 Respiratory 16 Rate Blood Pressure 129/67 O2 Sat by Pulse 100 Oximetry Departure - Departure Time of Disposition Order: 20:26 DIAGNOSIS: Popliteal pain Disposition: HOME 01 Certified Medical Emergency: Emergent Condition: Stable Additional Instructions: ED Follow Up Instructions: You have been treated by a care provider in the Emergency Department. These instructions are being provided to you so you can have an understanding of how to care for yourself upon discharge. Upon discharge from the Emergency Department, you are responsible for making arrangements for follow-up care by a physician of your choice. Take all prescribed medications as directed. Return to the Emergency Department immediately for any new or worsening symptoms. You may call the Physician Referral phone number at [phone] to obtain a list of Physicians who are taking new patients. Prescriptions: Ibuprofen [Motrin] 800 mg PO Q8H PRN PRN #20 tablet PRN Reason: inflammation Omeprazole [Prilosec] 20 mg PO DAILY@0700 #20 capsule Referrals: Kimmy Worthy MD [STAFF PHYSICIAN] - Call for Appoint. -1 week Instructions: Knee Pain, Knee Pain, [id number] Attestation - Physician/ MIKEL Attestation Patient care was provided by Advanced Practice Provider:: Yes Advanced Practice Provider:: Rony Fan Advanced Practice Provider documentation review:: The Mid-level provider documentation, treatment plan and medical decision making was reviewed by the physician who agrees with all treatment and medical decision making by the MLP.
== END 2016-06-01 21:04 | disposition home or self-care (01) ==
LOC: ED 19:10
DX: M25.562 Pain in left knee (principal); M25.462 Effusion, left knee; M79.1 Myalgia; I10 Essential (primary) hypertension; E78.5 Hyperlipidemia, unspecified; G89.29 Other chronic pain; R56.9 Unspecified convulsions; E11.9 Type 2 diabetes mellitus without complications; F41.9 Anxiety disorder, unspecified; Z79.899 Other long term (current) drug therapy
CPT/HCPCS: 85379; 99282